=== PATIENT | female | born 1985 | race Caucasian/White ===

== ENCOUNTER 2017-11-07 21:42 | Emergency (ER) | payer OTHER ==
--- NOTE | 2017-11-07 22:17 | PDOC ---
Rapid Medical Evaluation Chief Complaint: Burn Time Seen by Provider: 11/07/17 22:13 Medical Evaluation: Allergies Allergy/AdvReac Type Severity Reaction Status Date / Time No Known Allergies Allergy Verified 11/07/17 22:13 11/07/17 22:14 c/o hot oil splash to chest and right 2nd and 3rd digit 1 hours prior to arrival while at work. now with skin redness and blisters. PE: right hand redness with blisters, skin peeling and erythema to chest and right 2nd and 3rd digits. plan: patient to ED for further management of care.
[2017-11-07 22:19] VITALS: BP 157/112; PULSE 104; TEMP 98.6; BMI 37.8
--- NOTE | 2017-11-08 00:07 | PDOC ---
History of Present Illness - General History Source: Patient <ShlomoDelfino - Last Filed: 11/08/17 00:22> - General History Source: Patient Exam Limitations: No Limitations - History of Present Illness Initial Comments: 11/08/17 00:26 The patient is a 32 year old female with a significant PMH of HTN (not on medication) who presents to the emergency department with kent to the right hand, chest, and right side of neck s/p contact with hot oil. The patient reports cooking and going to change the oil of her frying pain when the hot oil splashed towards her. She describes the kent as localized to the 2nd, 3rd, and 4th digit of her right hand, her center chest, and the right side of her neck. She denies pain to her hand or chest but reports minimal pain to her neck. The patient denies chest pain, shortness of breath, headache and dizziness. Denies fever, chills, nausea, vomit, diarrhea and constipation. Denies dysuria, frequency, urgency and hematuria. Allergies: NKA Past surgical history: None reported. Social history: Current everyday smoker. No reported alcohol or drug use. PCP: Dr. Sharif Uribe <Jerrod Gaitan - Last Filed: 11/08/17 00:27> - General Chief Complaint: Burn Stated Complaint: BURN Time Seen by Provider: 11/07/17 22:13 Past History - Past Medical History COPD: No Diabetes: Yes (borderline) HTN: Yes (borderline) - Immunization History Immunization Up to Date: Yes - Suicide/Smoking/Psychosocial Hx Smoking History: Current every day smoker Have you smoked in the past 12 months: Yes Number of Cigarettes Smoked Daily: 20 Information on smoking cessation initiated: Yes 'Breaking Loose' booklet given: 11/07/17 Hx Alcohol Use: No Drug/Substance Use Hx: No Substance Use Type: None <Delfino Keenan - Last Filed: 11/08/17 00:22> <Jerrod Gaitan - Last Filed: 11/08/17 00:27> - Past Medical History Allergies/Adverse Reactions: Allergies Allergy/AdvReac Type Severity Reaction Status Date / Time No Known Allergies Allergy Verified 11/07/17 22:13 Home Medications: Ambulatory Orders Diclofenac Sodium 2 gm TP BID #1 gel..gram. 09/19/16 Famotidine [Heartburn Prevention] 20 mg PO DAILY 09/19/16 Loratadine [Claritin] 10 mg PO DAILY 09/19/16 Ibuprofen 800 mg PO TID #30 tablet 11/08/17 Oxycodone HCl/Acetaminophen [Percocet 5-325 mg Tablet] 1 - 2 tab PO Q6H #20 tablet MDD 4 11/08/17 Review of Systems - Review of Systems Able to Perform ROS?: Yes Comments:: 11/08/17 00:27 CONSTITUTIONAL: Absent: fever, chills, diaphoresis, generalized weakness, malaise, loss of appetite HEENT: Absent: rhinorrhea, nasal congestion, throat pain, throat swelling, difficulty swallowing, mouth swelling, ear pain, eye pain, visual Changes CARDIOVASCULAR: Absent: chest pain, syncope, palpitations, irregular heart rate, lightheadedness , peripheral edema RESPIRATORY: Absent: cough, shortness of breath, dyspnea with exertion, orthopnea, wheezing, stridor, hemoptysis GASTROINTESTINAL: Absent: abdominal pain, abdominal distension, nausea, vomiting, diarrhea, constipation, melena, hematochezia GENITOURINARY: Absent: dysuria, frequency, urgency, hesitancy, hematuria, flank pain, genital pain MUSCULOSKELETAL: Absent: myalgia, arthralgia, joint swelling SKIN: (+) Kent to chest, neck, and right hand. Absent: rash, itching, pallor HEMATOLOGIC/IMMUNOLOGIC: Absent: easy bleeding, easy bruising, lymphadenopathy, frequent infections ENDOCRINE: Absent: unexplained weight gain, unexplained weight loss, heat intolerance, cold intolerance NEUROLOGIC: Absent: headache, focal weakness or paresthesias, dizziness, unsteady gait, seizure, mental status changes, bladder or bowel incontinence PSYCHIATRIC: Absent: anxiety, depression, suicidal or homicidal ideation, hallucinations. <Jerrod Gaitan - Last Filed: 11/08/17 00:27> *Physical Exam - Vital Signs Last Vital Signs Temp Pulse Resp BP Pulse Ox 98.6 F 104 H 20 157/112 98 11/07/17 22:14 11/07/17 22:14 11/07/17 22:14 11/07/17 22:14 11/07/17 22:14 <Delfino Keenan - Last Filed: 11/08/17 00:22> - Vital Signs Last Vital Signs Temp Pulse Resp BP Pulse Ox 98.6 F 104 H 20 157/112 98 11/07/17 22:14 11/07/17 22:14 11/07/17 22:14 11/07/17 22:14 11/07/17 22:14 - Physical Exam Comments: 11/08/17 00:27 GENERAL: Well developed, well nourished. Awake and alert. No acute distress. HEENT: Normocephalic, atraumatic. PERRLA, EOMI. No conjunctival pallor. Sclera are non- icteric. Moist mucous membranes. Oropharynx is clear. NECK: Supple. Full ROM. No JVD. Carotid pulses 2+ and symmetric, without bruits. No thyromegaly. No lymphadenopathy. CARDIOVASCULAR: Regular rate and rhythm. No murmurs, rubs, or gallops. Distal pulses are 2+ and symmetric. PULMONARY: No evidence of respiratory distress. Lungs clear to auscultation bilaterally. No wheezing, rales or rhonchi. ABDOMINAL: Soft. Non-tender. Non-distended. No rebound or guarding. No organomegaly. Normoactive bowel sounds. MUSCULOSKELETAL Normal range of motion at all joints. No bony deformities or tenderness. No CVA tenderness. EXTREMITIES: No cyanosis. No clubbing. No edema. No calf tenderness. SKIN: (+) First degree burn in small area under chin on right side. 1% burn on sternal region. 1% burn on 3rd finger with open blister. Warm and dry. Normal capillary refill. No rashes. No jaundice. NEUROLOGICAL: Alert, awake, appropriate. Cranial nerves 2-12 intact. No deficits to light touch and temperature in face, upper extremities and lower extremities. No motor deficits in the in face, upper extremities and lower extremities. Normoreflexic in the upper and lower extremities. Normal speech. Toes are downgoing bilaterally. Gait is normal without ataxia. PSYCHIATRIC: Cooperative. Good eye contact. Appropriate mood and affect. <Jerrod Gaitan - Last Filed: 11/08/17 00:27> Medical Decision Making - Medical Decision Making 11/08/17 00:25 Dr. Keenan: The scribe's documentation has been prepared under my direction and personally reviewed by me in its entirery. I confirm that the note above accurately reflects all work, treatment, procedures, and medical decision making performed by me. <Delfino Keenan - Last Filed: 11/08/17 00:22> *DC/Admit/Observation/Transfer - Discharge Dispostion Admit: No <Delfino Keenan - Last Filed: 11/08/17 00:22> - Attestations Scribe Attestion: 11/08/17 00:27 Documentation prepared by Jerrod Gaitan, acting as medical advisor for Delfino Keenan DO. <Jerrod Gaitan - Last Filed: 11/08/17 00:27> Diagnosis at time of Disposition: First degree burn multiple fingers right hand not including thumb Qualifiers: Encounter type: initial encounter Qualified Code(s): T23.131A - Burn of first degree of multiple right fingers (nail), not including thumb, initial encounter - Prescriptions Prescriptions: Ibuprofen 800 mg PO TID #30 tablet Oxycodone HCl/Acetaminophen [Percocet 5-325 mg Tablet] 1 - 2 tab PO Q6H #20 tablet MDD 4 - Referrals Referrals: Sharif Uribe [Primary Care Provider] - - Patient Instructions Printed Discharge Instructions: How to Take Care of a Burn, DI for Kent Additional Instructions: Keep kent clean and dry. wash with soap and water. Apply silvadene after wash skin on blistered areas only. Don't apply of face or chest. Apply bacitracin on those areas. Return if any problems. - Post Discharge Activity
[2017-11-08] MEDS ORDERED: TETANUS AND DIPHTHERIA TOXOID 0.5 ML DISP.SYRIN IM ONE (00:17)
[2017-11-08] MEDS ORDERED: SILVER SULFADIAZINE 1% TOP CREAM 50 GM JAR TP ONE ×2 (00:18→00:26)
[2017-11-08] MEDS ORDERED: BACITRACIN 15 GM TUBE TOPICAL OINTMENT TP ONE (00:18)
[2017-11-08] MEDS ORDERED: IBUPROFEN 400 MG TABLET (FP) PO ONE ×2 (00:19→00:27)
[2017-11-08] MEDS ORDERED: BACITRACIN 0.9 GM PACKET ONE (00:27)
[2017-11-08] MEDS ORDERED: HEMOQUE CONTROL SOLUTION ONE (00:28)
== END 2017-11-08 01:20 | disposition home or self-care (01) ==
LOC: JER 21:42
PROC: 2W24X4Z Dressing of Chest Wall using Bandage (ICD-10-PCS; principal; 2017-11-07)
PROC: 2W22X4Z Dressing of Neck using Bandage (ICD-10-PCS; 2017-11-07)
PROC: 2W2JX4Z Dressing of Right Finger using Bandage (ICD-10-PCS; 2017-11-07)
PROC: 3E0234Z Introduction of Serum, Toxoid and Vaccine into Muscle, Percutaneous Approach (ICD-10-PCS; 2017-11-07)
DX: T23.131A Burn of first degree of multiple right fingers (nail), not including thumb, initial encounter (principal); T21.11XA Burn of first degree of chest wall, initial encounter; T20.17XA Burn of first degree of neck, initial encounter; X10.2XXA Contact with fats and cooking oils, initial encounter; Y93.G3 Activity, cooking and baking; Y92.090 Kitchen in other non-institutional residence as the place of occurrence of the external cause; Y99.0 Civilian activity done for income or pay
CPT/HCPCS: 99281-25

== ENCOUNTER 2018-09-23 00:13 | Emergency (ER) | payer OTHER ==
--- NOTE | 2018-09-23 00:17 | PDOC ---
History of Present Illness - General Stated Complaint: PAIN RIGHT FOOT Time Seen by Provider: 09/23/18 00:17 Past History - Past Medical History Allergies/Adverse Reactions: Allergies Allergy/AdvReac Type Severity Reaction Status Date / Time No Known Allergies Allergy Verified 11/07/17 22:13 Home Medications: Ambulatory Orders Diclofenac Sodium 2 gm TP BID #1 gel..gram. 09/19/16 Famotidine [Heartburn Prevention] 20 mg PO DAILY 09/19/16 Loratadine [Claritin] 10 mg PO DAILY 09/19/16 Ibuprofen 800 mg PO TID #30 tablet 11/08/17 Oxycodone HCl/Acetaminophen [Percocet 5-325 mg Tablet] 1 - 2 tab PO Q6H #20 tablet MDD 4 11/08/17 COPD: No Diabetes: Yes (borderline) HTN: Yes (borderline) - Immunization History Immunization Up to Date: Yes - Suicide/Smoking/Psychosocial Hx Smoking History: Current every day smoker Have you smoked in the past 12 months: Yes Number of Cigarettes Smoked Daily: 20 'Breaking Loose' booklet given: 11/07/17 Hx Alcohol Use: No Drug/Substance Use Hx: No Substance Use Type: None *DC/Admit/Observation/Transfer - Referrals Referrals: Babak Vann MD [Primary Care Provider] - - Patient Instructions - Post Discharge Activity
[2018-09-23 00:39] VITALS: BP 163/95; PULSE 81; TEMP 98; BMI 36.6
--- NOTE | 2018-09-23 00:48 | PDOC ---
History of Present Illness - General Chief Complaint: Pain, Acute Stated Complaint: PAIN RIGHT FOOT Time Seen by Provider: 09/23/18 00:17 - History of Present Illness Initial Comments: The patient is a 33F who presents for evaluation of several weeks of R lateral foot pain. She describes the pain as achy/dull, non-radiating, intermittent, worse with excessive walking and heavy lifting and alleviated by rest. She denies overlying erythema or recent trauma/injury. Takes advil with some relief. Endorses hx of arthritis Denies recent fevers/chills, illness, BARROW, vision changes, chest pain, SOB, abdominal pain, N/V/C/D, or changes in sensation 09/23/18 01:00 Past History - Past Medical History Allergies/Adverse Reactions: Allergies Allergy/AdvReac Type Severity Reaction Status Date / Time No Known Allergies Allergy Verified 09/23/18 00:38 Home Medications: Ambulatory Orders Diclofenac Sodium 2 gm TP BID #1 gel..gram. 09/19/16 Famotidine [Heartburn Prevention] 20 mg PO DAILY 09/19/16 Loratadine [Claritin] 10 mg PO DAILY 09/19/16 Ibuprofen 800 mg PO TID #30 tablet 11/08/17 Oxycodone HCl/Acetaminophen [Percocet 5-325 mg Tablet] 1 - 2 tab PO Q6H #20 tablet MDD 4 11/08/17 COPD: No Diabetes: Yes (borderline) HTN: Yes (borderline) - Immunization History Immunization Up to Date: Yes - Suicide/Smoking/Psychosocial Hx Smoking History: Never smoked Have you smoked in the past 12 months: No Number of Cigarettes Smoked Daily: 20 Information on smoking cessation initiated: No 'Breaking Loose' booklet given: 11/07/17 Hx Alcohol Use: No Drug/Substance Use Hx: No Substance Use Type: None Review of Systems - Review of Systems Able to Perform ROS?: Yes Comments:: GENERAL/CONSTITUTIONAL: No fever or chills. No weakness HEAD, EYES, EARS, NOSE AND THROAT: No change in vision. No ear pain or discharge. No sore throat CARDIOVASCULAR: No chest pain or shortness of breath RESPIRATORY: Denies cough, hemoptysis GASTROINTESTINAL: No nausea, vomiting, diarrhea or constipation GENITOURINARY: No dysuria, frequency, or change in urination MUSCULOSKELETAL: per HPI SKIN: No rash NEUROLOGIC: No headache, vertigo, loss of consciousness, or change in strength/ sensation ENDOCRINE: No increased thirst. No abnormal weight change HEMATOLOGIC/LYMPHATIC: No anemia, easy bleeding, or history of blood clots ALLERGIC/IMMUNOLOGIC: No hives or skin allergy 09/23/18 01:30 Is the patient limited Anguillan proficient: No *Physical Exam - Vital Signs Last Vital Signs Temp Pulse Resp BP Pulse Ox 98.0 F 81 18 163/95 99 09/23/18 00:38 12 00:38 09/23/18 00:38 12 00:38 12 00:38 - Physical Exam Comments: GENERAL: Awake, alert, and fully oriented, in no acute distress HEAD: No signs of trauma, normocephalic, atraumatic EYES: PERRLA, EOMI, sclera anicteric, conjunctiva clear ENT: Hearing grossly normal, nares patent, oropharynx clear without exudates. Moist mucosa LUNGS: No distress, speaks full sentences, clear to auscultation bilaterally HEART: Regular rate and rhythm, normal S1 and S2, no murmurs appreciated, peripheral pulses normal and equal bilaterally ABDOMEN: Soft, nontender, normoactive bowel sounds. No guarding, no rebound EXTREMITIES : Mild R lateral foot TTP with stepoff or obvious defect. Pt ambulating in ED w/o issue. Otherwise normal inspection, Normal range of motion , no edema. No clubbing or cyanosis NEUROLOGICAL: Cranial nerves II through XII grossly intact. Normal speech, normal gait, no focal sensorimotor deficits SKIN: Warm, Dry, normal turgor, no rashes or lesions noted 09/23/18 01:31 Moderate Sedation - Procedure Monitoring Vital Signs: Procedure Monitoring Vital Signs Temperature 98.0 F 09/23/18 00:38 Pulse Rate 81 09/23/18 00:38 Respiratory Rate 18 09/23/18 00:38 Blood Pressure 163/95 09/23/18 00:38 O2 Sat by Pulse Oximetry (%) 99 09/23/18 00:38 Medical Decision Making - Medical Decision Making The patient is a 33F who presents for evaluation of R lateral foot pain for several weeks. 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 Likely 2/2 use/stress/OA Recommended RICE and anti-inflammatories Plan for D/C w/ PCP f/u -Recommended f/u with PCP about HTN as well as patient has had persistently elevated BPs but has never been on HTN therapy Discharge instructions and return precautions given Patient in agreement and verbalizes understanding Dispo: home 09/23/18 01:32 *DC/Admit/Observation/Transfer Diagnosis at time of Disposition: Right foot pain Hypertension Qualifiers: Hypertension type: unspecified Qualified Code(s): I10 - Essential (primary) hypertension - Discharge Dispostion Disposition: HOME Condition at time of disposition: Stable Decision to Admit order: No - Referrals Referrals: Babak Vann MD [Primary Care Provider] - - Patient Instructions Printed Discharge Instructions: DI for Foot Pain, Essential Hypertension - Post Discharge Activity
--- NOTE | 2018-09-23 00:58 | PDOC ---
Attending Attestation - HPI HPI: 09/23/18 00:58 The patient is a 33 year old female with a past medical history of morbid obesity here today for evaluation of right foot pain. The patient reports that her foot pain began several weeks ago and is localized to the lateral aspect of the right foot. Patient denies headache, lightheadedness. Denies fever, chills. Denies chest pain, shortness of breath. Denies nausea, vomiting, diarrhea, abdominal pain. Allergies: NKA PCP: Edwar Hilliard - Physicial Exam PE: 09/23/18 00:59 GENERAL: Well developed, well nourished. Awake and alert. No acute distress. HEENT: Normocephalic, atraumatic. PERRLA, EOMI. No conjunctival pallor. Sclera are non- icteric. Moist mucous membranes. Oropharynx is clear. NECK: Supple. Full ROM. No JVD. Carotid pulses 2+ and symmetric, without bruits. No thyromegaly. No lymphadenopathy. CARDIOVASCULAR: Regular rate and rhythm. No murmurs, rubs, or gallops. Distal pulses are 2+ and symmetric. PULMONARY: No evidence of respiratory distress. Lungs clear to auscultation bilaterally. No wheezing, rales or rhonchi. ABDOMINAL: Soft. Non-tender. Non-distended. No rebound or guarding. No organomegaly. Normoactive bowel sounds. MUSCULOSKELETAL Normal range of motion at all joints. No bony deformities or tenderness. No CVA tenderness. EXTREMITIES: No cyanosis. No clubbing. No edema. No calf tenderness. No crepitus. No fifth metatarsal tenderness or swelling SKIN: Warm and dry. Normal capillary refill. No rashes. No jaundice. NEUROLOGICAL: Alert, awake, appropriate. Cranial nerves 2-12 intact. No deficits to light touch and temperature in face, upper extremities and lower extremities. No motor deficits in the in face, upper extremities and lower extremities. Normoreflexic in the upper and lower extremities. Normal speech. Toes are down- going bilaterally. Gait is normal without ataxia. PSYCHIATRIC: Cooperative. Good eye contact. Appropriate mood and affect. <Narendra Bosch - Last Filed: 09/23/18 00:58> - Resident Resident Name: Timmy Roe - ED Attending Attestation I have performed the following: I have examined & evaluated the patient, The case was reviewed & discussed with the resident, I agree w/resident's findings & plan, Exceptions are as noted - HPI HPI: 09/23/18 00:57 33 yo female has had some soreness to the lateral surface of her right foot. She denies any trauma. - Medical Decision Making 09/23/18 01:00 this pt has had some mild soreness to her rt foot. The physical exam is normal with no deformity,no erythema,no swelling ,good dp amd pt pulses,cap refill < 2 seconds,she is ambulating without any limping , She has no 5th metatarsal tenderness imp: recommend elevation of foot, ,nsaids for pain, ice to the area and followup with her PCP <Alie Warner - Last Filed: 09/23/18 01:03>
== END 2018-09-23 01:10 | disposition home or self-care (01) ==
LOC: JER 00:13
DX: M79.671 Pain in right foot (principal); I10 Essential (primary) hypertension; R73.03 Prediabetes; Z87.891 Personal history of nicotine dependence
CPT/HCPCS: 99283-25

== ENCOUNTER 2018-10-03 14:56 | Emergency (ER) | payer OTHER ==
[2018-10-03 15:20] VITALS: BP 151/80; PULSE 90; TEMP 98.7; BMI 40.3
--- NOTE | 2018-10-03 15:20 | PDOC ---
Rapid Medical Evaluation Time Seen by Provider: 10/03/18 15:18 Medical Evaluation: Allergies Allergy/AdvReac Type Severity Reaction Status Date / Time No Known Allergies Allergy Verified 09/23/18 00:38 10/03/18 15:19 The patient presents with a chief complaint of: left chhek, llq dental pain, took tylenol with min effect I have performed a brief in-person evaluation of this patient; Pertinent physical exam findings: ambulatory, in no respiratory distress, no visable abscess, edema, or wound I have ordered the following: none The patient will proceed to the ED for further evaluation. Discharge Disposition - Diagnosis Mouth pain - Referrals - Patient Instructions - Post Discharge Activity
--- NOTE | 2018-10-03 16:48 | PDOC ---
History of Present Illness - General Chief Complaint: Pain, Acute Stated Complaint: SWOLLEN FACE Time Seen by Provider: 10/03/18 15:18 History Source: Patient Exam Limitations: No Limitations - History of Present Illness Initial Comments: 10/03/18 16:43 Patient came for evaluation of lower jaw pain, mild swelling this morning that' s resolved, and question of about a dental abscess/come abscess. Denies fever, denies any knowledge of bad teeth, has her next exam in October. Timing/Duration: unsure Severity: mild, moderate Associated Symptoms: reports: denies symptoms. denies: fever/chills, headaches Past History - Travel Traveled outside of the country in the last 30 days: No Close contact w/someone who was outside of country & ill: No - Past Medical History Allergies/Adverse Reactions: Allergies Allergy/AdvReac Type Severity Reaction Status Date / Time No Known Allergies Allergy Verified 09/23/18 00:38 Home Medications: Ambulatory Orders Ibuprofen 800 mg PO TID #30 tablet 11/08/17 Amoxicillin - [Amoxicillin 500mg Capsule -] 500 mg PO TID #21 capsule 10/03/18 Hydrocodone/Ibuprofen [Hydrocodone-Ibuprofen 10-200] 1 each PO ASDIR 10/03/18 Naproxen [Naprosyn -] 500 mg PO BID #30 tablet 10/03/18 COPD: No Diabetes: Yes (borderline) HTN: Yes (borderline) - Immunization History Immunization Up to Date: Yes - Suicide/Smoking/Psychosocial Hx Smoking History: Never smoked Have you smoked in the past 12 months: No Number of Cigarettes Smoked Daily: 20 Information on smoking cessation initiated: No 'Breaking Loose' booklet given: 11/07/17 Hx Alcohol Use: No Drug/Substance Use Hx: No Substance Use Type: None Review of Systems - Review of Systems Able to Perform ROS?: Yes Is the patient limited Syriac proficient: Yes Constitutional: Yes: Symptoms Reported, See HPI, Malaise. No: Fever HEENTM: Yes: Symptoms Reported, See HPI, Mouth Pain, Dental Problems Respiratory: Yes: See HPI. No: Symptoms reported, Cough *Physical Exam - Vital Signs Last Vital Signs Temp Pulse Resp BP Pulse Ox 98.7 F 90 20 151/80 99 10/03/18 15:16 10/03/18 15:16 10/03/18 15:16 10/03/18 15:16 10/03/18 15:16 - Physical Exam General Appearance: Yes: Nourished, Appropriately Dressed. No: Apparent Distress HEENT: positive: NIGHAT, Normal ENT Inspection, Normal Voice, TMs Normal, Pharynx Normal, Other (has some minimally protruding wisdom teeth noted in the upper and lower aspect of the left jaw. Tenderness is in alveolar groove in the area with some tooth. No fluctuance, no obvious dental carrier decay,) Neck: positive: Supple. negative: Tender, Lymphadenopathy (R), Lymphadenopathy (L) Respiratory/Chest: positive: Lungs Clear, Normal Breath Sounds Gastrointestinal/Abdominal: positive: Normal Bowel Sounds, Soft. negative: Tender Extremity: positive: Normal Capillary Refill, Normal Inspection Integumentary: positive: Normal Color, Dry, Warm Neurologic: positive: motorcycle repairer II-XII NML intact, Fully Oriented, Alert, Normal Mood/ Affect, Normal Response, Motor Strength 5/5 Moderate Sedation - Procedure Monitoring Vital Signs: Procedure Monitoring Vital Signs Temperature 98.7 F 10/03/18 15:16 Pulse Rate 90 10/03/18 15:16 Respiratory Rate 20 10/03/18 15:16 Blood Pressure 151/80 10/03/18 15:16 O2 Sat by Pulse Oximetry (%) 99 10/03/18 15:16 *DC/Admit/Observation/Transfer Diagnosis at time of Disposition: Pain, dental - Discharge Dispostion Disposition: HOME Condition at time of disposition: Stable Decision to Admit order: No - Prescriptions Prescriptions: Amoxicillin - [Amoxicillin 500mg Capsule -] 500 mg PO TID #21 capsule Naproxen [Naprosyn -] 500 mg PO BID #30 tablet - Referrals Referrals: Babak Vann MD [Primary Care Provider] - - Patient Instructions Printed Discharge Instructions: DI for Dental Pain Additional Instructions: Rest, drink lots of fluids: Teas, water, soups Saltwater gargles/ keep mouth clean and rinse after each meal May use wet teabag for pain relief to area Avoid hard chewing foods, stick to ice cream, Jell-O, yogurt etc. Tylenol or Motrin for fever and pain Complete all medication as prescribed Watch and wait amoxicillin, initiate 500 mg every 8 hours for fevers, worsening swelling, evidence of infection in mouth and follow up with dentist immediately Seek dental appointment as soon as possible for evaluation of dental injury/pain Followup with private physician in one to 2 days as needed Return to emergency department for worsened symptoms, fevers, swelling to face or worsened pain - Post Discharge Activity Forms/Work/School Notes: Back to Work
== END 2018-10-03 16:54 | disposition home or self-care (01) ==
LOC: JERFT 14:56
DX: K08.89 Other specified disorders of teeth and supporting structures (principal)
CPT/HCPCS: 99281-25

== ENCOUNTER 2018-10-30 21:05 | Emergency (ER) | payer OTHER ==
--- NOTE | 2018-10-30 21:11 | PDOC ---
Rapid Medical Evaluation Time Seen by Provider: 10/30/18 21:08 Medical Evaluation: Allergies Allergy/AdvReac Type Severity Reaction Status Date / Time No Known Allergies Allergy Verified 09/23/18 00:38 10/30/18 21:08 I have performed a brief in-person evaluation of this patient. The patient presents with a chief complaint of: right knee pain radiating up to right hip and swelling x 3 wks, already on Vicodin, Meloxicam and muscle relaxer from pain management Pertinent physical exam findings: No acute distress, normal ROM I have ordered the following: Pgu The patient will proceed to the ED for further evaluation. Discharge Disposition - Diagnosis Knee pain, right Qualifiers: Chronicity: acute Qualified Code(s): M25.561 - Pain in right knee - Referrals Referrals: Babak Vann MD [Primary Care Provider] - - Patient Instructions - Post Discharge Activity
[2018-10-30 21:12] VITALS: BP 137/71; PULSE 84; TEMP 98.7; BMI 41.6
--- NOTE | 2018-10-30 21:39 | PDOC ---
History of Present Illness - General Chief Complaint: Pain, Acute Stated Complaint: KNEE PAIN Time Seen by Provider: 10/30/18 21:08 History Source: Patient Exam Limitations: No Limitations - History of Present Illness Initial Comments: 10/30/18 23:09 Patient is a 33-year-old female past medical history of arthritis, herniated disks, presents to the ER with 3 weeks of right knee pain and swelling. Patient states that the pain radiates up to her hip. She states it hurts to walk. Denies trauma or twisting the knee. She also states that her catheter has been more swollen recently. Cigarettes daily. She is seeing pain management for her back pain is currently taking Vicodin, and meloxicam. Denies fevers, chills, trauma, falling, numbness and tingling to the extremity. Past History - Travel Traveled outside of the country in the last 30 days: No Close contact w/someone who was outside of country & ill: No - Past Medical History Allergies/Adverse Reactions: Allergies Allergy/AdvReac Type Severity Reaction Status Date / Time No Known Allergies Allergy Verified 10/30/18 21:12 Home Medications: Ambulatory Orders Hydrocodone/Ibuprofen [Hydrocodone-Ibuprofen 10-200] 1 each PO ASDIR 10/03/18 Meloxicam 15 mg PO BID 10/30/18 Tizanidine HCl 2 mg PO TID 10/30/18 COPD: No Diabetes: Yes (borderline) HTN: Yes (borderline) Other medical history: herniated disc - Immunization History Immunization Up to Date: Yes - Suicide/Smoking/Psychosocial Hx Smoking History: Current every day smoker Have you smoked in the past 12 months: Yes Number of Cigarettes Smoked Daily: 15 Information on smoking cessation initiated: No 'Breaking Loose' booklet given: 11/07/17 Hx Alcohol Use: No Drug/Substance Use Hx: No Substance Use Type: None Review of Systems - Review of Systems Able to Perform ROS?: Yes Comments:: 10/30/18 21:38 CONSTITUTIONAL: Absent: fever, chills, diaphoresis, generalized weakness, malaise, loss of appetite HEENT: Absent: rhinorrhea, nasal congestion, throat pain, throat swelling, difficulty swallowing, mouth swelling, ear pain, eye pain, visual Changes CARDIOVASCULAR: Absent: chest pain, loss of consciousness, palpitations, irregular heart rate, peripheral edema RESPIRATORY: Absent: cough, shortness of breath, dyspnea with exertion, orthopnea, wheezing, stridor, hemoptysis GASTROINTESTINAL: Absent: abdominal pain, abdominal distension, nausea, vomiting, diarrhea, constipation, melena, hematochezia GENITOURINARY: Absent: dysuria, frequency, urgency, hesitancy, hematuria, flank pain, genital pain MUSCULOSKELETAL: Present: R knee and calf pain/swelling. R hip pain Absent: myalgia SKIN: Absent: rash, itching, pallor HEMATOLOGIC/IMMUNOLOGIC: Absent: easy bleeding, easy bruising, lymphadenopathy, frequent infections ENDOCRINE: Absent: unexplained weight gain, unexplained weight loss, heat intolerance, cold intolerance NEUROLOGIC: Absent: headache, focal weakness or paresthesias, dizziness, unsteady gait, seizure, mental status changes, bladder or bowel incontinence PSYCHIATRIC: Absent: anxiety, depression, suicidal or homicidal ideation, hallucinations. Is the patient limited Russian proficient: No *Physical Exam - Vital Signs Last Vital Signs Temp Pulse Resp BP Pulse Ox 98.7 F 84 15 137/71 100 10/30/18 21:09 10/30/18 21:09 10/30/18 21:09 10/30/18 21:09 10/30/18 21:09 - Physical Exam Comments: 10/30/18 21:39 GENERAL: Well developed, well nourished. Awake and alert. No acute distress. MUSCULOSKELETAL TTP of the R knee. Decreased ROM of the R knee with flexion and extension d.t pain. Normal range of motion at all other joints. No bony deformities or tenderness. No CVA tenderness. EXTREMITIES: R calf is swollen and TTP. Non-pitting edema to the R calf with tenderness to palpation. No cyanosis. No clubbing Warm and dry. Normal capillary refill. No rashes. No jaundice. NEUROLOGICAL: Alert, awake, appropriate. Cranial nerves 2-12 intact. No deficits to light touch and temperature in face, upper extremities and lower extremities. No motor deficits in the in face, upper extremities and lower extremities. Normoreflexic in the upper and lower extremities. Normal speech. Toes are down- going bilaterally. Gait is normal without ataxia. PSYCHIATRIC: Cooperative. Good eye contact. Appropriate mood and affect. Moderate Sedation - Procedure Monitoring Vital Signs: Procedure Monitoring Vital Signs Temperature 98.7 F 10/30/18 21:09 Pulse Rate 84 10/30/18 21:09 Respiratory Rate 15 10/30/18 21:09 Blood Pressure 137/71 10/30/18 21:09 O2 Sat by Pulse Oximetry (%) 100 10/30/18 21:09 Medical Decision Making - Medical Decision Making 10/30/18 23:11 Patient is a 33-year-old female who presents to the ER with right knee pain for 3 weeks. On exam tenderness to palpation of the R knee medially and laterally. Patient also with a swollen right calf tenderness to palpation. Decreased flexion on exam due to pain. Patient put in for x-rays of the and hip. Arthritis vs DVT? Would give Rhumatology referral given arthritis in back at young age Ultrasound to rule out DVT of the right leg put in. Sign out given to the Cinthia Warner [employer]. Dispo pending imaging. *DC/Admit/Observation/Transfer Diagnosis at time of Disposition: Knee pain, right Qualifiers: Chronicity: acute Qualified Code(s): M25.561 - Pain in right knee - Referrals Referrals: Babak Vann MD [Primary Care Provider] - - Patient Instructions - Post Discharge Activity
[2018-10-30] MEDS ORDERED: LIDOCAINE PATCH REMOVAL MC SCH (22:00)
--- NOTE | 2018-10-30 22:31 | PDOC ---
*Physical Exam - Vital Signs Last Vital Signs Temp Pulse Resp BP Pulse Ox 98.7 F 84 15 137/71 100 10/30/18 21:09 10/30/18 21:09 10/30/18 21:09 10/30/18 21:09 10/30/18 21:09 - Physical Exam General Appearance: Yes: Appropriately Dressed Medical Decision Making - Medical Decision Making 10/31/18 00:22 xray: negative no acute fracture. degenerative findings. us negative lidocaine patch and toradol for pain control. advised to follow up with rheumatology 10/31/18 00:23 *DC/Admit/Observation/Transfer Diagnosis at time of Disposition: Hip pain, right, Right calf pain Knee pain, right Qualifiers: Chronicity: acute Qualified Code(s): M25.561 - Pain in right knee - Discharge Dispostion Disposition: HOME - Referrals Referrals: Babak Vann MD [Primary Care Provider] - 24 hours - Patient Instructions Printed Discharge Instructions: DI for Musculoskeletal Pain Additional Instructions: follow up with pain management for pain control. follow up with rheumatology for work of arthritis Additional Instructions: * Please call your personal physician to report your Emergency Department visit and to report your progress, if any. * If there is no improvement in symptoms in 2 days call your physician. * Return to the Emergency Department for any worsening symptoms. - Post Discharge Activity Forms/Work/School Notes: Back to Work
[2018-10-30] MEDS ORDERED: KETOROLAC TROMETHAMINE 60 MG/2 ML VIAL IM ONE (23:48)
[2018-10-30] MEDS ORDERED: LIDOCAINE 5% TOPICAL PATCH TP ONE (23:52)
[2018-10-31] MEDS ORDERED: KETOROLAC TROMETHAMINE 60 MG/2 ML VIAL ONE (00:06)
[2018-10-31] MEDS ORDERED: LIDOCAINE 5% TOPICAL PATCH ONE (00:07)
== END 2018-10-31 00:26 | disposition home or self-care (01) ==
LOC: JERFT 21:05 → JER 21:05
PROC: 3E0233Z Introduction of Anti-inflammatory into Muscle, Percutaneous Approach (ICD-10-PCS; principal; 2018-10-30)
DX: M79.10 Myalgia, unspecified site (principal); M79.89 Other specified soft tissue disorders; I10 Essential (primary) hypertension; E11.9 Type 2 diabetes mellitus without complications
CPT/HCPCS: 73523-TC-FY; 73560-TC-RT-FY; 84703; 93971-TC; 99282-25

== ENCOUNTER 2020-09-20 18:56 | Emergency (ER) | payer OTHER ==
[2020-09-20 19:21] VITALS: PULSE 95; TEMP 97.9; BMI 39.8
[2020-09-20] MEDS ORDERED: DIPHTH,PERTUSS(ACELL),TET 0.5 ML DISP.SYRIN IM ONE ×2 (19:47→19:49)
[2020-09-20 19:55] VITALS: BP 160/90
== END 2020-09-20 20:00 | disposition home or self-care (01) ==
LOC: JERFT 18:56
PROC: 3E0234Z Introduction of Serum, Toxoid and Vaccine into Muscle, Percutaneous Approach (ICD-10-PCS; principal; 2020-09-20)
DX: S61.412A Laceration without foreign body of left hand, initial encounter (principal)
CPT/HCPCS: 90715; 99284-25

== ENCOUNTER 2020-10-30 23:25 | Emergency (ER) | payer OTHER ==
[2020-10-30 23:40] VITALS: BP 133/78; PULSE 85; TEMP 97.9; BMI 40.3
== END 2020-10-31 02:16 | disposition home or self-care (01) ==
LOC: JER 23:25
DX: L02.214 Cutaneous abscess of groin (principal)
CPT/HCPCS: 99282-25

== ENCOUNTER 2021-03-10 18:48 | Emergency (ER) | payer OTHER ==
[2021-03-10 18:55] VITALS: BP 179/98; PULSE 66; TEMP 98.1; BMI 38.6
[2021-03-10] MEDS ORDERED: KETOROLAC TROMETHAMINE 60 MG/2 ML VIAL IM ONE (19:19)
[2021-03-10] MEDS ORDERED: KETOROLAC TROMETHAMINE 60 MG/2 ML VIAL ONE (19:22)
== END 2021-03-10 19:30 | disposition home or self-care (01) ==
LOC: JERFT 18:48
PROC: 3E0233Z Introduction of Anti-inflammatory into Muscle, Percutaneous Approach (ICD-10-PCS; principal; 2021-03-10)
DX: M25.561 Pain in right knee (principal)
CPT/HCPCS: 96372; 99284-25

== ENCOUNTER 2022-02-17 12:40 | Emergency (ER) | payer OTHER ==
[2022-02-17 12:53] VITALS: BP 151/88; PULSE 75; TEMP 98.1; BMI 36.0
== END 2022-02-17 14:06 | disposition home or self-care (01) ==
LOC: JER 12:40
DX: K04.7 Periapical abscess without sinus (principal)
CPT/HCPCS: 99281-25

== ENCOUNTER 2023-05-30 16:06 | Emergency (ER) | payer SELFPAY ==
[2023-05-30] MEDS ORDERED: ACETAMINOPHEN 1000 MG/100 ML BAG IVPB ONE (16:20)
[2023-05-30] MEDS ORDERED: METOCLOPRAMIDE HCL INJECTION 10 MG/2 ML VIAL IVPUSH ONE (16:20)
[2023-05-30] MEDS ORDERED: LACTATED RINGERS SOLUTION 1000 ML INFUS.BAG IV ONE (16:20)
[2023-05-30] MEDS ORDERED: ACETAMINOPHEN INJECTION 100 ML IVPB ONE (16:28)
[2023-05-30] MEDS ORDERED: METOCLOPRAMIDE HCL INJECTION 10 MG/2 ML VIAL ONE (16:28)
[2023-05-30 17:02] LABS: BASO % 0.7 % (0-2.0); HEMOGLOBIN 13.9 GM/dL (10.7-15.3); LYMPH % 22.6 % (8-40); MCH 27.6 pg (25.7-33.7); MCHC 33.8 g/dl (32.0-36.0); MEAN CELL VOLUME 81.8 fl (80-96); MEAN PLT VOLUME 7.5 fl (7.5-11.1); MONO % 4.5 % (3.8-10.2); NEUT % 71.2 % (42.8-82.8); PLATELET COUNT 318 10^3/uL (134-434); RBC 5.02 M/mm3 (3.60-5.2); RDW 14.1 % (11.6-15.6); WHITE BLOOD COUNT 8.1 K/mm3 (4.0-10.0)
[2023-05-30 17:10] LABS: INR 1.05 (0.83-1.09); PROTHROMBIN TIME (PATIENT) 12.2 SEC (9.7-13.0)
[2023-05-30 17:11] VITALS: BP 144/95; PULSE 75; RESP 18; TEMP 98.2; BMI 36.5
[2023-05-30 17:13] LABS: ACTIVATED PTT 30.2 SECONDS (25.2-36.5)
[2023-05-30 17:26] LABS: ALBUMIN 3.6 g/dl (3.4-5.0)
[2023-05-30 17:27] LABS: BLOOD UREA NITROGEN 12.8 mg/dL (7-18)
[2023-05-30 17:29] LABS: CREATININE 0.8 mg/dL (0.55-1.3)
[2023-05-30 17:32] LABS: BILIRUBIN,TOTAL 0.2 mg/dL (0.2-1)
== END 2023-05-30 18:28 | disposition home or self-care (01) ==
LOC: JER 16:06
PROC: 3E033NZ Introduction of Analgesics, Hypnotics, Sedatives into Peripheral Vein, Percutaneous Approach (ICD-10-PCS; principal; 2023-05-30)
PROC: 3E033GC Introduction of Other Therapeutic Substance into Peripheral Vein, Percutaneous Approach (ICD-10-PCS; 2023-05-30)
DX: R53.1 Weakness (principal); R51.9 Headache, unspecified; H53.8 Other visual disturbances; R20.2 Paresthesia of skin
CPT/HCPCS: 36415; 70450-TC; 80053; 80061; 82550; 83036; 84484; 84703; 85025; 85610; 85730; 86850; 86900; 86901; 93005; 93010; 99285-25